=== PATIENT | male | born 1950 ===

== ENCOUNTER 2017-08-24 09:32 | Emergency (ER) | payer MEDICARE, BC ==
[2017-08-24 09:52] VITALS: RESP 18
[2017-08-24] MEDS ORDERED: Sodium Chloride 0.9% 500 ML IV STA (10:33)
--- NOTE | 2017-08-24 10:35 | C.PDOC ---
History Of Present Illness 67 year old male presents to the ED c/o right sided back pain, flank pain and bloating for the past 2 days. Patient denies fever, chills, nausea, vomit, diarrhea, dyauria, hematuria, weakness, numbness. Time Seen by Provider: 08/24/17 10:04 Chief Complaint (Nursing): Back Pain History Per: Patient History/Exam Limitations: no limitations Onset/Duration Of Symptoms: Days Current Symptoms Are (Timing): Still Present Quality Of Discomfort: "Pain" Previous Symptoms: Back Pain Associated Symptoms: None Recent travel outside of the [place]: No Additional History Per: Patient Past Medical History Reviewed: Historical Data, Nursing Documentation, Vital Signs Vital Signs: Last Vital Signs Temp 98.1 F 08/24/17 16:36 Pulse 76 08/24/17 16:36 Resp 18 08/24/17 16:36 BP 160/81 H 08/24/17 16:36 Pulse Ox 97 08/24/17 16:36 - Medical History PMH: No Chronic Diseases Surgical History: No Surg Hx Family History: States: Unknown Family Hx - Social History Hx Alcohol Use: No Hx Substance Use: No - Immunization History Hx Tetanus Toxoid Vaccination: No Hx Influenza Vaccination: No Hx Pneumococcal Vaccination: No Review Of Systems Constitutional: Negative for: Fever, Chills Cardiovascular: Negative for: Chest Pain Respiratory: Negative for: Cough, Shortness of Breath Gastrointestinal: Positive for: Other (Bloated) Musculoskeletal: Positive for: Back Pain Skin: Negative for: Rash Neurological: Negative for: Weakness, Numbness Physical Exam - Physical Exam Appears: Non-toxic, No Acute Distress Skin: Normal Color, Warm, Dry Head: Atraumatic, Normacephalic Eye(s): bilateral: Normal Inspection Nose: No Discharge Oral Mucosa: Moist Neck: Normal ROM, Supple Chest: Symmetrical Cardiovascular: Rhythm Regular, No Murmur Respiratory: Normal Breath Sounds, No Rales, No Rhonchi, No Wheezing Gastrointestinal/Abdominal: Soft, No Tenderness, No Guarding, No Rebound Back: Other (Right sided back tenderness) Extremity: Normal ROM, No Tenderness, No Swelling Neurological/Psych: Oriented x3 Gait: Steady ED Course And Treatment - Laboratory Results Result Diagrams: 08/24/17 10:40 08/24/17 10:40 O2 Sat by Pulse Oximetry: 96 (On RA) Pulse Ox Interpretation: Normal - Radiology CXR: Interpreted by Me, Viewed By Me CXR Interpretation: Yes: No Acute Disease. No: Infiltrates - CT Scan/US CT abd/pelvis Other Rad Studies (CT/US): Read By Radiologist, Radiology Report Reviewed CT/US Interpretation: Accession No. : [id number]. Patient Name / ID : LUCAS RICKS / [id number]. Exam Date : 08/24/2017 12:40:30 ( Approved ). Study Comment : Sex / Age : M / 67Y. Creator : Ashwini Meadows. Dictator : Pako Garcia MD. Trackmobile Operator : Instructional Supervisor : Pako Garcia MD. Approver2 : Report Date : 08/24/2017 12:52:42. My Comment : . CT abdomen and pelvis. History: Right flank pain. Comparison: None available. Technique : Multiple contiguous axial images were performed through the abdomen and pelvis without the use of intravenous contrast. Subsequently, sagittal and coronal reformatted images were obtained. This CT exam was performed using one or more of the following dose reduction techniques: Automated exposure control, adjustment of the mA and/or kV according to patient size, and/or use of iterative reconstruction technique. Findings: 1.6 centimeter calcified infrahilar lymph node best seen on series 3, image 1. Additional smaller calcified right hilar nodes measuring up to 7 millimeters. Prominent atelectasis within the right lower lobe. 5 millimeter ground-glass pulmonary nodule within the right middle lobe. Coronary calcifications. Prominent liver with diffuse decreased attenuation suggestive for fatty infiltration. Cholelithiasis with gallbladder calculus measuring up to 1.2 centimeters near the neck of the gallbladder. Spleen is preserved. Adrenal glands are preserved. Pancreas is preserved. Upper abdominal bowel is preserved. Right kidney: No calculi or hydronephrosis. Left Kidney: Upper to mid pole 7 millimeter nonobstructive calculus. No hydronephrosis. Urinary bladder is preserved. Heterogeneous prostate. Mild fecal retention in the colon. Few scattered diverticuli. Few scattered areas of underdistention in the left hemicolon. Moderate fecal retention in the right hemicolon. Appendix appears preserved. Small fat containing right inguinal hernia. Degenerative changes in the spine. Prominent endplate reactive changes noted at the L1-2, L2-3, and L4-5 levels with multilevel posterior disc osteophyte complexes. Impression: Cholelithiasis. Nonobstructive 7 millimeter upper to midpole left renal calculus. Additional findings as above. Medical Decision Making Medical Decision Making: Impression: back pain Plan: * CT abd/pelvis * Labs * Morphine 4 mg IVP * IV fluids * UA Disposition - Disposition Referrals: Africa Matute MD [Staff Provider] - Serafin Chavis MD [Staff Provider] - Ivory Cramer MD [Staff Provider] - Disposition: HOME/ ROUTINE Disposition Time: 15:31 Condition: STABLE Additional Instructions: Follow up with PMD and General surgery within 1-2 dasy. Return to ED if feel worse. 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 - Scribe Statement The provider has reviewed the documentation as recorded by the Scribe Jules Velázquez All medical record entries made by the Scribe were at my direction and personally dictated by me. I have reviewed the chart and agree that the record accurately reflects my personal performance of the history, physical exam, medical decision making, and the department course for this patient. I have also personally directed, reviewed, and agree with the discharge instructions and disposition.
[2017-08-24] MEDS ORDERED: Sodium Chloride 0.9% 1,000 ML ONE (10:45)
[2017-08-24] MEDS ORDERED: Morphine 4 MG/ML VIAL ONE (10:45)
[2017-08-24 10:52] LABS: BASO # 0.1 K/uL (0.0-0.2); BASO % 0.9 % (0.0-2.0); EOS # 0.1 K/uL (0.0-0.7); EOS % 1.7 % (0.0-4.0); HEMOGLOBIN 14.2 g/dL (12.0-18.0); LYMPH # 2.2 K/uL (1.0-4.3); LYMPH % 28.1 % (20.0-40.0); MEAN CELL VOLUME 91.5 fL (80.0-94.0); MEAN CORPUSCULAR HEMOGLOBIN 31.3 pg (27.0-31.0); MEAN CORPUSCULAR HGB CONC 34.2 g/dL (33.0-37.0); MEAN PLATELET VOLUME 8.4 fL (7.2-11.7); MONO # 0.7 K/uL (0.0-0.8); NEUT # 4.8 K/uL (1.8-7.0); NEUT % 60.3 % (50.0-75.0); NRBC % 0.1 % (0.0-2.0); RBC 4.54 Mil/uL (4.40-5.90); RED CELL DISTRIBUTION WIDTH 13.1 % (11.5-14.5)
[2017-08-24 10:57] LABS: URINE BILIRUBIN NEGATIVE (NEGATIVE); URINE BLOOD 1+ (NEGATIVE); URINE CLARITY Clear (Clear); URINE COLOR Yellow (YELLOW); URINE GLUCOSE (UA) NORMAL (Normal); URINE LEUKOCYTE ESTERASE NEG Leu/uL (Negative); URINE PROTEIN NEGATIVE (NEGATIVE); URINE UROBILINOGEN NORMAL mg/dL (0.2-1.0)
[2017-08-24 11:08] LABS: ALB/GLOB RATIO 1.2 (1.0-2.1); ALBUMIN 4.2 g/dL (3.5-5.0); ALT/SGPT 26 U/L (21-72); AST/SGOT 39 U/L (17-59); BLOOD UREA NITROGEN 15 mg/dL (9-20); CALCIUM 9.1 mg/dl (8.6-10.4); GFR AFRICAN-AMERICAN > 60; GFR NON-AFRICAN AMERICAN > 60
[2017-08-24 11:10] LABS: INR 1.2; PROTHROMBIN TIME 13.3 SECONDS (9.7-12.2)
--- NOTE | 2017-08-24 13:56 | CT ---
CT abdomen and pelvis History: Right flank pain. Comparison: None available. Technique: Multiple contiguous axial images were performed through the abdomen and pelvis without the use of intravenous contrast. Subsequently, sagittal and coronal reformatted images were obtained. This CT exam was performed using one or more of the following dose reduction techniques: Automated exposure control, adjustment of the mA and/or kV according to patient size, and/or use of iterative reconstruction technique. Findings: 1.6 centimeter calcified infrahilar lymph node best seen on series 3, image 1. Additional smaller calcified right hilar nodes measuring up to 7 millimeters. Prominent atelectasis within the right lower lobe. 5 millimeter ground-glass pulmonary nodule within the right middle lobe. Coronary calcifications. Prominent liver with diffuse decreased attenuation suggestive for fatty infiltration. Cholelithiasis with gallbladder calculus measuring up to 1.2 centimeters near the neck of the gallbladder. Spleen is preserved. Adrenal glands are preserved. Pancreas is preserved. Upper abdominal bowel is preserved. Right kidney: No calculi or hydronephrosis. Left Kidney: Upper to mid pole 7 millimeter nonobstructive calculus. No hydronephrosis. Urinary bladder is preserved. Heterogeneous prostate. Mild fecal retention in the colon. Few scattered diverticuli. Few scattered areas of underdistention in the left hemicolon. Moderate fecal retention in the right hemicolon. Appendix appears preserved. Small fat containing right inguinal hernia. Degenerative changes in the spine. Prominent endplate reactive changes noted at the L1-2, L2-3, and L4-5 levels with multilevel posterior disc osteophyte complexes. Impression: Cholelithiasis. Nonobstructive 7 millimeter upper to midpole left renal calculus. Additional findings as above.
--- NOTE | 2017-08-24 15:14 | RAD ---
HISTORY: abnormal finding on CXR COMPARISON: No prior. TECHNIQUE: Chest PA and lateral FINDINGS: LUNGS: No active pulmonary disease. PLEURA: No significant pleural effusion identified. No pneumothorax apparent. CARDIOVASCULAR: Normal. OSSEOUS STRUCTURES: Degenerative changes. VISUALIZED UPPER ABDOMEN: Normal. OTHER FINDINGS: None. IMPRESSION: No active disease.
[2017-08-24 16:37] VITALS: BP 160/81; PULSE 76; TEMP 98.1
[2017-08-24 18:25] VITALS: O2SAT 96
== END 2017-08-24 16:37 | disposition home or self-care (01) ==
LOC: C.ER 09:32
DX: K59.00 Constipation, unspecified (principal); K80.20 Calculus of gallbladder without cholecystitis without obstruction; R91.1 Solitary pulmonary nodule; M54.5 Low back pain
CPT/HCPCS: 71046; 74176; 80053; 81001; 85025; 85610; 85730; 96361; 96374; 99284; J2270; J7040